=== PATIENT | male | born 1955 | race Caucasian/White ===

== ENCOUNTER 2018-05-01 20:09 | Observation (INO) ==
[2018-05-01] MEDS ORDERED: Sod Chloride 0.9% Inj 1,000 ML IV.SIG ONE (20:49)
--- NOTE | 2018-05-01 21:04 | ED ---
HPI General Chief Complaint: Syncope Stated Complaint: Evac/Syncope Time Seen by Provider: 05/01/18 20:19 Source: patient and RN notes reviewed Mode of arrival: EMS Limitations: no limitations History of Present Illness HPI narrative: 62-year-old male presents to the emergency department via EMS for evaluation after syncopal episode that occurred just prior to arrival. Patient states he was sitting on the balcony at his hotel. He is here on vacation from the [facility]. He states that he felt dizzy and then he had a syncopal episode. He is unsure how long he was out as his is the one that called 911. Patient states that he feels okay as long as he is lying still. He denies any headache. No chest pain or shortness of breath. No abdominal pain. Nausea, vomiting, diarrhea. According to EMS, he was hypotensive with blood pressure in the 80s over 40s. Patient reports history of hyperlipidemia, seizures, hypertension. He takes his antihypertensives as needed. He has not had any today. Patient denies any history of syncope in the past. He does take Dilantin for seizures. He does not believe he had any seizure activity. He denies being on anticoagulants. No recent surgery. No long travel. No leg edema. No hemoptysis. He is not on chemotherapy. No history DVT or PE. Moderate severity. Patient does state that his legs feel "heavy". MD complaint: collapsed Prodromal symptoms: lightheaded Witnessed: yes - by bystander Context: at rest Injuries sustained associated with event: none Current symptoms: back to baseline History: seizure disorder Treatments prior to arrival: IV fluids Related Data Home Medications Medication Instructions Recorded Confirmed clonidine HCl 0.1 mg PO PRN PRN 05/01/18 05/01/18 phenytoin sodium extended 60 mg PO DAILY 05/01/18 05/01/18 [Dilantin] ranitidine HCl [Zantac] 150 mg PO DAILY 05/01/18 05/01/18 sertraline [Zoloft] 50 mg PO DAILY 05/01/18 05/01/18 sertraline [Zoloft] 100 mg PO DAILY 05/01/18 05/01/18 Allergies Allergy/AdvReac Type Severity Reaction Status Date / Time No Known Allergies Allergy Unverified 05/01/18 20:24 Review of Systems ROS: all other systems reviewed are negative PMFSH Medical History Medical History Hypertension (Acute) Seizures (Acute) Social History Social History Substance History: No History of Abuse Smoking Status: Current every day smoker Tobacco Type: Cigarettes How Often Do You Have a Drink Containing Alcohol: 2 to 4 times a month Recent Travel in [facility] within the Last 8 Weeks: No Recent Out of Country Travel within the Last 8 Weeks: No Immunization History Tetanus Immunization: Unsure Hx Influenza Vaccine This Season: No Exam Narrative Exam Narrative: GENERAL: Well-nourished, well-developed male patient, afebrile SKIN: Focused skin assessment warm/dry. HEAD: Normocephalic. Atraumatic ENT: Mucosa pink and moist. No erythema or exudates. No uvular edema. No uvular , palatal, or tonsillar deviation. Airway patent. Nasal turbinates appear normal without nasal blood, purulent drainage or septal hematoma. Bilateral tympanic membranes clear without erythema or perforation. EYES: No scleral icterus. No injection or drainage. PERRLA. EOM intact. NECK: Supple, trachea midline. No JVD or lymphadenopathy. CARDIOVASCULAR: Regular rate and rhythm without murmurs, gallops, or rubs. Bilateral radial and pedal pulses are 2+ RESPIRATORY: Breath sounds equal bilaterally. No accessory muscle use. Lung sounds are clear to auscultation GASTROINTESTINAL: Abdomen soft, non-tender, nondistended. MUSCULOSKELETAL: No cyanosis, or edema. Bilateral upper and lower extremity strength 5/5. All extremities are neurovascularly intact BACK: Nontender without obvious deformity. No CVA tenderness. NEUROLOGICAL: Awake and alert. Cranial nerves II through XII intact. Motor and sensory grossly within normal limits. Five out of 5 muscle strength in all muscle groups. Normal speech. Finger to nose is normal bilaterally. Heel to campbell is normal bilaterally. Course Initial Documented Vital Signs Temperature 98 F 05/01/18 20:15 Pulse Rate 76 05/01/18 20:15 Respiratory Rate 18 05/01/18 20:15 Blood Pressure 114/62 05/01/18 20:15 Pulse Oximetry 94 L 05/01/18 20:15 Last Documented Vital Signs Temperature 98 F 05/01/18 20:15 Pulse Rate 99 H 05/01/18 21:13 Respiratory Rate 18 05/01/18 21:13 Blood Pressure 129/66 05/01/18 21:13 Pulse Oximetry 98 05/01/18 21:13 Medical Decision Making CASTILLO Attestation CASTILLO supervised visit: Yes Attestation: I was present with the advanced practitioner during the management of this patient. I discussed the case with the advanced practitioner and agree with the findings and plan as documented in their note except as noted below. 62yM presenting with syncopal episode just prior to arrival. Patient has a history of seizure disorder, on dilantin, but no observed seizure-like activity during this episode. Admits to drinking alcohol earlier this evening. BP initially 80s systolic on EMS arrival, improved to 110 with 1 L NS bolus. No known history of syncope in the past. Workup reveals subtherapeutic dilantin level, EtOH 67, trop negative, EKG unremarkable. The patient was given 1 g fosphenytoin loading dose. He will require further workup, cardiac monitoring, and re-evaluation at frequent intervals. [facility] Narrative Medical decision making narrative: 62-year-old male presents to the emergency department via EMS for evaluation after syncopal episode that occurred just prior to arrival. Apparently, patient was hypotensive on scene. EKG, CBC, CMP , magnesium, CK, troponin, TSH, PTT, PT/INR, dilantin level, alcohol level, CT the brain are ordered and pending. Patient is given normal saline 1 L IV bolus. Orthostatic vital signs are ordered and pending. EKG shows SR, no acute ST changes. CBC shows no acute abnormalities. CMP shows hypokalemia of 3.3. Magnesium is 1.9. CK is 55. Troponin is less than 0.02. TSH is 1.120. PTT is 20.9. PT/INR is 11.3/1.1. Alcohol level is 67. Dilantin level is 1.9. CT of the brain is negative. is now at bedside, describes an event that could possibly be a seizure. Patient is given fosphenytoin 1 g IV. Patient is admitted for observation, syncope vs. seizure. Medical Screen Exam Complete: Yes Emergency Medical Condition: Yes Differential Diagnosis Differential Diagnosis: dehydration vs. electrolyte abnormality vs. recurrent seizure vs. ACS vs. intracranial abnormality Medical Records Medical records reviewed: Yes I reviewed the patient's medical records. Lab Data Lab results reviewed: Yes I reviewed the patient's lab results. Result diagrams: 05/01/18 21:15 05/01/18 21:15 Lab Results 0905/01/18 05/01/18 Range/Units 21:15 21:15 21:15 WBC 8.0 (4.0-11.0) th/mm3 RBC 4.20 L (4.50-5.90) mil/mm3 Hgb 14.2 (13.0-17.0) gm/dL Hct 41.2 (39.0-51.0) % MCV 98.0 (80.0-100.0) fL MCH 33.8 (27.0-34.0) pg MCHC 34.5 (32.0-36.0) % RDW 13.3 (11.6-17.2) % Plt Count 259 (150-450) th/mm3 MPV 6.9 L (7.0-11.0) fL Neut % (Auto) 35.1 (16.0-70.0) % Lymph % (Auto) 56.9 H (9.0-44.0) % [place] % (Auto) 4.9 (0.0-8.0) % Eos % (Auto) 2.3 (0.0-4.0) % Baso % (Auto) 0.8 (0.0-2.0) % Neut # (Auto) 2.8 (1.8-7.7) th/mm3 Lymph # (Auto) 4.6 (1.0-4.8) th/mm3 [place] # (Auto) 0.4 (0.0-0.9) th/mm3 Eos # (Auto) 0.2 (0.0-0.4) th/mm3 Baso # (Auto) 0.1 (0.0-0.2) th/mm3 WBC Differential . Differential Comment Auto diff final PT 11.3 (9.8-11.6) sec INR 1.1 Ratio APTT 20.9 L (24.3-30.1) sec Sodium 144 (136-145) meq/L Potassium 3.3 L (3.5-5.1) meq/L Chloride 111 H (98-107) meq/L Carbon Dioxide 20.5 L (21.0-32.0) meq/L Anion Gap 13 (5-15) meq/L BUN 6 L (7-18) mg/dL Creatinine 0.71 (0.60-1.30) mg/dL Estimated GFR Greater than 89 (>89) mL/min Random Glucose 81 (74-106) mg/dL Calcium 8.4 L (8.5-10.1) mg/dL Magnesium 1.9 (1.5-2.5) mg/dL Total Bilirubin 0.2 (0.2-1.0) mg/dL AST 15 (15-37) U/L ALT 25 (12-78) U/L Alkaline Phosphatase 88 (45-117) U/L Total Creatine Kinase 55 (39-308) U/L Troponin I Less than 0.02 L (0.02-0.05) ng/mL Total Protein 6.0 L (6.4-8.2) g/dL Albumin 3.3 L (3.4-5.0) g/dL TSH 1.120 (0.358-3.740) uIU/mL Phenytoin 1.9 L (10.0-20.0) mcg/mL Serum Alcohol 67 H (0-5) mg/dL Imaging Data Radiologist's impression: Head CT 05/01/18 20:49 CONCLUSION: 1. Negative noncontrast head CT. . ECG Data Attestation: I personally reviewed and interpreted this ECG as follows: Interpretation: Rate: 70 BPM Rhythm: Sinus [place]: Normal Intervals: Normal intervals, no blocks, QTc 470 ms Q waves: III T waves: Inverted in aVL ST segments: No elevations or depressions Impression: Non-specific EKG, QTc 470 ms, no previous EKG available for comparison. Discharge Plan Discharge Disposition Patient Disposition: 30 Still Patient Discharge Condition Condition: Stable Discharge Details Diagnosis: Syncope, Subtherapeutic serum dilantin level Physicians Team ED Provider: Jayshree Randolph ED Midlevel Provider: Alexandria Almodovar Primary Care Provider: UNKNOWN, Attending Provider: Jamaica Bates Other Providers: [facility],Insurance ; Marisabel Murray Discharge Interventions Interventions: Vital Signs Last Done: 05/01/18 21:13 Status ED Status: Admitted Observation Patient
[2018-05-01 21:21] LABS: Baso # (Auto) 0.1 th/mm3 (0.0-0.2); Baso % (Auto) 0.8 % (0.0-2.0); Eos # (Auto) 0.2 th/mm3 (0.0-0.4); Eos % (Auto) 2.3 % (0.0-4.0); Hematocrit 41.2 % (39.0-51.0); Hemoglobin 14.2 gm/dL (13.0-17.0); Lymph # (Auto) 4.6 th/mm3 (1.0-4.8); Lymph % (Auto) 56.9 % (9.0-44.0); Mean Corpuscular HGB Conc 34.5 % (32.0-36.0); Mean Corpuscular Hemoglobin 33.8 pg (27.0-34.0); Mean Platelet Volume 6.9 fL (7.0-11.0); Mono # (Auto) 0.4 th/mm3 (0.0-0.9); Mono % (Auto) 4.9 % (0.0-8.0); Neut # (Auto) 2.8 th/mm3 (1.8-7.7); Neut % (Auto) 35.1 % (16.0-70.0); Platelet Count 259 th/mm3 (150-450); Red Cell Distribution Width 13.3 % (11.6-17.2)
[2018-05-01 21:38] LABS: Activated Partial Thrombo Time 20.9 sec (24.3-30.1); INR 1.1 Ratio; Prothrombin Time 11.3 sec (9.8-11.6)
[2018-05-01 21:41] LABS: Alanine Aminotransferase 25 U/L (12-78); Albumin 3.3 g/dL (3.4-5.0); Anion Gap 13 meq/L (5-15); Aspartate Aminotransferase 15 U/L (15-37); Blood Urea Nitrogen 6 mg/dL (7-18); Calcium 8.4 mg/dL (8.5-10.1); Carbon Dioxide 20.5 meq/L (21.0-32.0); Chloride 111 meq/L (98-107); Glomerular Filtration Rate Greater Than 89 mL/min (>89); Glucose,Random 81 mg/dL (74-106); Magnesium 1.9 mg/dL (1.5-2.5); Potassium 3.3 meq/L (3.5-5.1); Sodium 144 meq/L (136-145)
--- NOTE | 2018-05-01 21:46 | CT ---
EXAM DATE: 05/01/2018 9:43 PM EDT AGE/SEX: 62 years / Male INDICATIONS: Syncope. CLINICAL DATA: This is the patient's initial encounter. Patient reports that signs and symptoms have been present for 1 day and indicates a pain score of 0/10. MEDICAL/SURGICAL HISTORY: Hypertension. None. RADIATION DOSE: 56.35 CTDI (mGy) COMPARISON: No prior exams available for comparison. TECHNIQUE: CT of the head without contrast. Using automated exposure control and adjustment of the mA and/or kV according to patient size, radiation dose was kept as low as reasonably achievable to ob tain optimal diagnostic quality images. DICOM format image data is available electronically for revi ew and comparison. FINDINGS: Cerebrum: The ventricles are normal for age. No evidence of midline shift, mass lesion, hemorrhage or acute infarction. No extraaxial fluid collections are seen. Posterior Fossa: The cerebellum and brainstem are intact. The 4th ventricle is midline. The cerebe llopontine angle is unremarkable. Extracranial: The visualized portion of the orbits is intact. Skull: The calvaria is intact. No evidence of skull fracture. CONCLUSION: 1. Negative noncontrast head CT. . Electronically signed by: Ashok Allison MD 05/01/2018 9:45 PM EDT
[2018-05-01 21:50] LABS: Alkaline Phosphatase 88 U/L (45-117); Phenytoin (Dilantin) 1.9 mcg/mL (10.0-20.0)
[2018-05-01 21:51] LABS: Alcohol 67 mg/dL (0-5); Creatine Kinase 55 U/L (39-308)
[2018-05-01] MEDS ORDERED: Fosphenytoin Inj 1,000 MGPE in Sodium Chlor 0.9% Inj 50 ML IV.SIG ONE (21:58)
[2018-05-01] MEDS ORDERED: Acetaminophen 325 MG Tablet PO PRN (22:31)
[2018-05-01] MEDS ORDERED: Enoxaparin Inj 40 MG/0.4 ML Syringe SQ SCH (23:00)
--- NOTE | 2018-05-01 23:05 | P.HP ---
History of Present Illness Service: [facility] Primary Care Physician: UNKNOWN History of Present Illness: 62-year-old male with past medical history significant for seizure disorder, hypertension and hyperlipidemia presents the emergency department for evaluation of a syncopal episode. The patient reports he was sitting on the porch when he became dizzy. He does not remember the following events. His , who witnessed the event, states he lost consciousness for several seconds with his head drooping backward in his chair. She denies any seizure-like activity. Of note, the patient has been on Dilantin for the past 10 years although for the past 1 month he has been having emesis 20 minutes following the ingestion of Dilantin. He stopped taking his Dilantin approximately 2 days ago. He denies any chest pain or shortness of breath. No abdominal pain. No nausea/vomiting/diarrhea. No lateralizing signs/symptoms. No weakness. 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 - Medical History Medical History: Medical History (Last Updated 05/01/18 @ 23:00 by Jamaica Bates MD) Hyperlipidemia Hypertension Seizures - Surgical History Surgical History: Surgical History (Last Updated 05/01/18 @ 23:00 by Jamaica Bates MD) No history of previous surgery - Family History Family History: Family History (Last Updated 05/01/18 @ 23:00 by Jamaica Bates MD) Other Coronary artery disease Diabetes mellitus - Tobacco History Tobacco Use In Past 30 Days: Yes Smoking Status: Current every day smoker Tobacco Type: Cigarettes - Alcohol History How Often Do You Have a Drink Containing Alcohol: 2 to 4 times a month - Substance Use History Substance History: No History of Abuse - Travel History Recent Travel in the [place] Within the Last 8 Weeks: No Recent Travel Out of the Country Within the Last 8 Weeks: No - Immunization History Tetanus Immunization: Unsure Hx Influenza Vaccine This Season: No Medications and Allergies Active Medications: Active Medications Acetaminophen (Tylenol) 650 mg PO Q4H PRN PRN Reason: Temp > 100.4 Enoxaparin Sodium (Lovenox Inj) 40 mg SQ Q24H JAVIER Famotidine (Pepcid) 20 mg PO DAILY JAVIER Ondansetron HCl (Zofran Inj) 4 mg IV.PUSH Q6H PRN PRN Reason: NAUSEA OR VOMITING Phenytoin Sodium (Dilantin) 60 mg PO DAILY JAVIER Sertraline HCl (Zoloft) 100 mg PO DAILY JAVIER Allergies Allergy/AdvReac Type Severity Reaction Status Date / Time No Known Allergies Allergy Unverified 05/01/18 20:24 Home Medications Medication Instructions Recorded Confirmed Type clonidine HCl 0.1 mg PO PRN PRN 05/01/18 05/01/18 History phenytoin sodium extended 60 mg PO DAILY 05/01/18 05/01/18 History [Dilantin] ranitidine HCl [Zantac] 150 mg PO DAILY 05/01/18 05/01/18 History sertraline [Zoloft] 50 mg PO DAILY 05/01/18 05/01/18 History sertraline [Zoloft] 100 mg PO DAILY 05/01/18 05/01/18 History Exam Vital signs: Vital Signs 05/01/18 20:15 05/01/18 21:13 Temperature 98 F Pulse Rate 76 90 Respiratory Rate 18 18 Blood Pressure 114/62 129/66 Pulse Oximetry 94 L 98 Intake & Output 05/01/18 05/01/18 05/02/18 06:59 18:59 06:59 Intake Total 1000 / 1000 Output Total 700 / 700 Balance 300 / 300 Weight 74.843 kg Intake: IV 1000 / 1000 NS Inj 1,000 ML @ Wide Open IV. 1000 / 1000 SIG BOLUS ONE Rx#:[id number] Output: Urine 700 / 700 Narrative: Gen.: No acute distress Head: Normocephalic. Atraumatic. EENT: Pupils equal round and reactive to light. Nose without drainage. Airway intact. Throat without injection. Cardiovascular: Regular rate and rhythm. No murmurs, rubs or gallops. Respiratory: Lungs clear to auscultation bilaterally. No wheezes or rhonchi. Abdomen: Soft, nontender, nondistended. No peritoneal signs. Musculoskeletal: No gross deformities. No edema. Skin: No obvious rashes or erythema. Neuro: Sensory and motor grossly intact. Cranial nerves II through XII grossly intact. Results - Labs CBC & Chem 7: 05/01/18 21:15 05/01/18 21:15 Labs: Laboratory Results - last 24 hr 05/01/18 05/01/18 05/01/18 21:15 21:15 21:15 WBC 8.0 RBC 4.20 L Hgb 14.2 Hct 41.2 MCV 98.0 MCH 33.8 MCHC 34.5 RDW 13.3 Plt Count 259 MPV 6.9 L Neut % (Auto) 35.1 Lymph % (Auto) 56.9 H [place] % (Auto) 4.9 Eos % (Auto) 2.3 Baso % (Auto) 0.8 Neut # (Auto) 2.8 Lymph # (Auto) 4.6 [place] # (Auto) 0.4 Eos # (Auto) 0.2 Baso # (Auto) 0.1 WBC Differential . Differential Comment Auto diff final PT 11.3 INR 1.1 APTT 20.9 L Sodium 144 Potassium 3.3 L Chloride 111 H Carbon Dioxide 20.5 L Anion Gap 13 BUN 6 L Creatinine 0.71 Estimated GFR Greater than 89 Random Glucose 81 Calcium 8.4 L Magnesium 1.9 Total Bilirubin 0.2 AST 15 ALT 25 Alkaline Phosphatase 88 Total Creatine Kinase 55 Troponin I Less than 0.02 L Total Protein 6.0 L Albumin 3.3 L TSH 1.120 Phenytoin 1.9 L Serum Alcohol 67 H - Imaging Impressions Head CT 05/01/18 20:49 CONCLUSION: 1. Negative noncontrast head CT. . Caprini VTE Risk Assessment Caprini VTE Risk Assessment: Moderate/High Risk (score >= 2) Caprini Risk Assessment Model: Point Value = 1 Point Value = 2 Point Value = 3 Point Value = 5 Age 41-60 Minor surgery BMI > 25 kg/m2 Swollen legs Varicose veins or History of unexplained or recurrent spontaneous Oral contraceptives or hormone replacement Sepsis (< 1 month) Serious lung disease, including pneumonia (< 1 month) Abnormal pulmonary function Acute myocardial infarction Congestive heart failure (< 1 month) History of inflammatory bowel disease Medical patient at bed rest Age 61-74 Arthroscopic surgery Major open surgery (> 45 min) Laparoscopic surgery (> 45 min) Malignancy Confined to bed (> 72 hours) Immobilizing plaster cast Central venous access Age >= 75 History of VTE Family history of VTE Factor V Leiden Prothrombin [id number] Lupus anticoagulant Anticardiolipin antibodies Elevated serum homocysteine Heparin-induced thrombocytopenia Other congenital or acquired thrombophilia Stroke (< 1 month) Elective arthroplasty Hip, pelvis, or leg fracture Acute spinal cord injury (< 1 month) Prophylaxis Regimen: Total Risk Factor Score Risk Level Prophylaxis Regimen 0-1 Low Early ambulation 2 Moderate Order ONE of the following: *Sequential Compression Device (SCD) *Heparin 5000 units SQ BID 3-4 Higher Order ONE of the following medications: *Heparin 5000 units SQ TID *Enoxaparin/Lovenox 40 mg SQ daily (WT < 150 kg, CrCl > 30 mL/min) *Enoxaparin/Lovenox 30 mg SQ daily (WT < 150 kg, CrCl > 10-29 mL/min) *Enoxaparin/Lovenox 30 mg SQ BID (WT < 150 kg, CrCl > 30 mL/min) AND/OR *Sequential Compression Device (SCD) 5 or more Highest Order ONE of the following medications: *Heparin 5000 units SQ TID (Preferred with Epidurals) *Enoxaparin/Lovenox 40 mg SQ daily (WT < 150 kg, CrCl > 30 mL/min) *Enoxaparin/Lovenox 30 mg SQ daily (WT < 150 kg, CrCl > 10-29 mL/min) *Enoxaparin/Lovenox 30 mg SQ BID (WT < 150 kg, CrCl > 30 mL/min) AND *Sequential Compression Device (SCD) Assessment and Plan - Plan Assessment/plan: 1. Syncope Unclear etiology Concern for cardiac versus seizure EEG pending Patient subtherapeutic on his Dilantin Status post fosphenytoin, continue daily Neurology consulted, appreciate recommendations Echo/carotid ultrasound pending 2. Seizure disorder As above 3. Hypertension Clonidine as needed FEN Cardiac diet Electrolytes: Status post repletion of potassium, monitor BMP Lovenox
[2018-05-02 07:30] LABS: Baso % (Auto) 0.5 % (0.0-2.0); Eos # (Auto) 0.1 th/mm3 (0.0-0.4); Eos % (Auto) 1.3 % (0.0-4.0); Hematocrit 45.3 % (39.0-51.0); Hemoglobin 15.2 gm/dL (13.0-17.0); Lymph # (Auto) 3.6 th/mm3 (1.0-4.8); Lymph % (Auto) 42.8 % (9.0-44.0); Mean Corpuscular HGB Conc 33.6 % (32.0-36.0); Mean Corpuscular Hemoglobin 33.6 pg (27.0-34.0); Mean Platelet Volume 7.2 fL (7.0-11.0); Mono # (Auto) 0.5 th/mm3 (0.0-0.9); Mono % (Auto) 5.8 % (0.0-8.0); Neut # (Auto) 4.1 th/mm3 (1.8-7.7); Neut % (Auto) 49.6 % (16.0-70.0); Platelet Count 253 th/mm3 (150-450); Red Blood Count 4.53 mil/mm3 (4.50-5.90); Red Cell Distribution Width 13.7 % (11.6-17.2); White Blood Count 8.3 th/mm3 (4.0-11.0)
[2018-05-02 07:52] LABS: Anion Gap 8 meq/L (5-15); Blood Urea Nitrogen 10 mg/dL (7-18); Calcium 8.8 mg/dL (8.5-10.1); Carbon Dioxide 23.8 meq/L (21.0-32.0); Chloride 112 meq/L (98-107); Glomerular Filtration Rate Greater Than 89 mL/min (>89); Glucose,Random 89 mg/dL (74-106); Sodium 144 meq/L (136-145)
[2018-05-02] MEDS ORDERED: Sertraline 100 MG Tablet PO SCH (09:00)
[2018-05-02] MEDS ORDERED: Famotidine 20 MG Tablet PO SCH (09:00)
--- NOTE | 2018-05-02 09:02 | P.CONNEU ---
History of Present Illness Service: Neurology Consult date: 05/02/18 Requesting Physician: Jamaica Bates Reason for Consult: Syncope vs Seizure Primary Care Provider: UNKNOWN Chief Complaint: Syncope vs seizure History of Present Illness: 62 y/o male with hx of seizures presented to the ER after episode of suspect sz vs syncope. Pt reports hx of seizures starting about 10 yrs ago with generalized seizure. He has been followed by a neurologist in his home town. Initially started on generic dilantin but had difficulty stabilizing his level and he was changed to brand name Dilantin. He had been on 400mg qam and 200mg qhs. Pt states a few months ago he began experiencing nausea and vomitting about 20 min after he took his medications. He tried weaning off his other medications but found it was related to his Dilantin. He began experimenting with how he took his dose to see if this would decrease nausea and it did not. He began cutting back his dose to 200mg daily and had not had any medication in the past 2 days while on vacation as he did not want to be vomitting while they were here. Yesterday he was sitting in his chair and had an aura similar to what he would have prior to a seizure, he felt dizzy, no vertigo or light headedness, states that it seems like everything he is seeing is slanted. He then lost consciousness. His states he was rigid, no convulsions, head was back and he made a choking sound. Episode lasted about 30 seconds. He then slowly came to. He was nauseous, vomitted and was confused. He had a severe headache as well. He did not bite his tongue. He did have urinary incontinence. His called 911 and he was brought to the ER. His last seizure was almost 10 yrs ago. He has never been on any other medications other than the Dilantin and generic dilantin. He denies hx of stroke or TIA. He has hx of HTN and hyperlipidemia. No hx of meningitis or encephalitis. No hx of cancer or any head trauma. They do not know the cause of his seizures. Review of Systems All other systems reviewed negative except as stated in HPI Constitutional: Reports weight loss Gastrointestinal: Reports nausea, Reports vomiting Neurologic: Reports dizziness, Reports headache(s), Reports seizure-like activity PMFSH - History History Provided By: Patient - Medical / Surgical Hx Neg / Unobtainable Surgical History: No Previous Surgery - Medical History Medical History: Medical History (Last Updated 05/01/18 @ 23:00 by Jamaica Bates MD) Hyperlipidemia Hypertension Seizures - Surgical History Surgical History: Surgical History (Last Updated 05/01/18 @ 23:00 by Jamaica Bates MD) No history of previous surgery - Family History Family History: Family History (Last Updated 05/01/18 @ 23:00 by Jamaica Bates MD) Other Coronary artery disease Diabetes mellitus - Social History I have reviewed the patient's Social History: Yes - Tobacco History Second Hand Smoke Exposure: No Tobacco Use In Past 30 Days: Yes Smoking Status: Heavy tobacco smoker Tobacco Type: Cigarettes - Alcohol History How Often Do You Have a Drink Containing Alcohol: 4 or more times a week - Substance Use History Substance History: No History of Abuse - Travel History [facility] Travel in the [facility] Within the Last 8 Weeks: No Recent Travel Out of the Country Within the Last 8 Weeks: No - Immunization History Tetanus Immunization: Unsure Hx Influenza Vaccine This Season: No Medications and Allergies Allergies Allergy/AdvReac Type Severity Reaction Status Date / Time No Known Allergies Allergy Unverified 05/01/18 20:24 Home Medications Medication Instructions Recorded Confirmed Type clonidine HCl 0.1 mg PO PRN PRN 05/01/18 05/01/18 History phenytoin sodium extended 60 mg PO DAILY 05/01/18 05/01/18 History [Dilantin] ranitidine HCl [Zantac] 150 mg PO DAILY 05/01/18 05/01/18 History sertraline [Zoloft] 50 mg PO DAILY 05/01/18 05/01/18 History sertraline [Zoloft] 100 mg PO DAILY 05/01/18 05/01/18 History Active Medications: Active Medications Acetaminophen (Tylenol) 650 mg PO Q4H PRN PRN Reason: Temp > 100.4 Clonidine HCl (Catapres) 0.1 mg PO Q6H PRN PRN Reason: SBP>160, DBP>90 Last Admin: 05/02/18 07:31 Dose: 0.1 mg Enoxaparin Sodium (Lovenox Inj) 40 mg SQ Q24H JAVIER Last Admin: 05/01/18 23:14 Dose: 40 mg Famotidine (Pepcid) 20 mg PO DAILY JAVIER Levetiracetam (Keppra) 500 mg PO BID [facility] Ondansetron HCl (Zofran Inj) 4 mg IV.PUSH Q6H PRN PRN Reason: NAUSEA OR VOMITING Sertraline HCl (Zoloft) 100 mg PO DAILY [facility] Exam Vital signs: Vital Signs 05/01/18 20:15 05/01/18 21:09 05/01/18 21:13 Temperature 98 F Pulse Rate 76 72 90 Respiratory Rate 18 18 Blood Pressure 114/62 129/66 129/66 Pulse Oximetry 94 L 94 L 98 05/02/18 00:00 05/02/18 04:00 05/02/18 07:22 Temperature 98.8 F 98.5 F 98.1 F Pulse Rate 72 69 65 Respiratory Rate 16 17 16 Blood Pressure 167/95 H 167/99 H 178/105 H Pulse Oximetry 94 L 94 L 96 Intake & Output 05/01/18 05/02/18 05/02/18 18:59 06:59 18:59 Intake Total 1070 / 1070 100 / 100 Output Total 700 / 700 Balance 370 / 370 100 / 100 Weight 74.843 kg Intake: IV 1070 / 1070 Cerebyx Inj 1,000 MGPE In NS 70 / 70 Inj 50 ML @ 280 mls/hr IV.SIG ONCE ONE Rx#:[id number] NS Inj 1,000 ML @ Wide Open IV. 1000 / 1000 SIG BOLUS ONE Rx#:[id number] Oral 100 / 100 Output: Urine 700 / 700 Other: Weight On Admission 74.843 kg - Routine HEENT Exam Head: Present: normocephalic, atraumatic - Routine Neck Exam Absent: carotid bruit - Routine Cardiovascular Exam Present: RRR - Routine Neurological Exam Present: alert, oriented X3, CN II-XII intact, normal reflexes, moving all extremities, normal tone, hearing grossly intact, normal speech. Absent: sensory deficit, motor deficit, pronator drift, clonus, nystagmus, facial asymmetry, tremors Results - Labs CBC & Chem 7: 05/02/18 06:00 05/02/18 06:00 Labs: Laboratory Results - last 24 hr 05/01/18 05/01/18 05/01/18 21:15 21:15 21:15 WBC 8.0 RBC 4.20 L Hgb 14.2 Hct 41.2 MCV 98.0 MCH 33.8 MCHC 34.5 RDW 13.3 Plt Count 259 MPV 6.9 L Neut % (Auto) 35.1 Lymph % (Auto) 56.9 H Prentiss % (Auto) 4.9 Eos % (Auto) 2.3 Baso % (Auto) 0.8 Neut # (Auto) 2.8 Lymph # (Auto) 4.6 Prentiss # (Auto) 0.4 Eos # (Auto) 0.2 Baso # (Auto) 0.1 WBC Differential . Differential Comment Auto diff final PT 11.3 INR 1.1 APTT 20.9 L Sodium 144 Potassium 3.3 L Chloride 111 H Carbon Dioxide 20.5 L Anion Gap 13 BUN 6 L Creatinine 0.71 Estimated GFR Greater than 89 Random Glucose 81 Calcium 8.4 L Magnesium 1.9 Total Bilirubin 0.2 AST 15 ALT 25 Alkaline Phosphatase 88 Total Creatine Kinase 55 Troponin I Less than 0.02 L Total Protein 6.0 L Albumin 3.3 L TSH 1.120 Phenytoin 1.9 L Serum Alcohol 67 H 05/02/18 05/02/18 06:00 06:00 WBC 8.3 RBC 4.53 Hgb 15.2 Hct 45.3 MCV 100.0 MCH 33.6 MCHC 33.6 RDW 13.7 Plt Count 253 MPV 7.2 Neut % (Auto) 49.6 Lymph % (Auto) 42.8 Prentiss % (Auto) 5.8 Eos % (Auto) 1.3 Baso % (Auto) 0.5 Neut # (Auto) 4.1 Lymph # (Auto) 3.6 Prentiss # (Auto) 0.5 Eos # (Auto) 0.1 Baso # (Auto) 0.0 WBC Differential . Differential Comment Auto diff final PT INR APTT Sodium 144 Potassium 4.0 Chloride 112 H Carbon Dioxide 23.8 Anion Gap 8 BUN 10 Creatinine 0.70 Estimated GFR Greater than 89 Random Glucose 89 Calcium 8.8 Magnesium Total Bilirubin AST ALT Alkaline Phosphatase Total Creatine Kinase Troponin I Total Protein Albumin TSH Phenytoin Serum Alcohol - Imaging Impressions Head CT 05/01/18 20:49 CONCLUSION: 1. Negative noncontrast head CT. . Review/Management - Diagnosis (1) Seizure Code(s): R56.9 - Unspecified convulsions Status: Acute Current Visit: Yes - Review/Management Plan: Episode sounds suggestive of seizure he had weaned himself off Dilantin due to side effects of nausea, vomiting will start Keppra 500mg bid in place of the Dilantin side effects/benefit discussed with pt no driving x 6 months, no unguarded heights or swimming alone discussed drinking alcohol will lower seizure threshold will get EEG MRI brain MRA brain CUS pending continue telemetry ECHO pending pt has neurologist that he follows with in his home town Addendum note pt seen examined and d/w PA agree for change to keppra 500 mg bid,eeg if w/u negative can go home today and f/u in [facility] with his neurologist. No driving for 6 mo's pt informed.
[2018-05-02] MEDS ORDERED: levETIRAcetam 500 MG Tablet PO SCH (10:00)
--- NOTE | 2018-05-02 12:02 | US ---
EXAM DATE: 05/02/2018 11:41 AM EDT AGE/SEX: 62 years / Male INDICATIONS: Syncope. CLINICAL DATA: This is the patient's initial encounter. Patient reports that signs and symptoms have been present for 1 day and indicates a pain score of 0/10. MEDICAL/SURGICAL HISTORY: . Hyperlipidemia. HTN. Seizures. None. COMPARISON: No prior exams available for comparison. VELOCITY PARAMETERS: ICA/CCA Ratio: Right 0.98 , Left 0.71 ICA: Right 85 cm/sec, Left 67 cm/sec CCA: Right 86 cm/sec, Left 94 cm/sec ECA: Right 96 cm/sec, Left 81 cm/sec Vertebral: Right 45 cm/sec antegrade, Left 76 cm/sec antegrade FINDINGS: Right Carotid: Mild arteriosclerotic plaque is visualized.The waveforms are within normal limits. Left Carotid: Mild arteriosclerotic plaque is visualized. The waveforms are within normal limits. Other: None. CONCLUSION: 1. Right Internal Carotid Artery: No significant stenosis or atherosclerotic plaque is visualized. 2. Left Internal Carotid Artery: No significant stenosis or atherosclerotic plaque is visualized. Electronically signed by: Lauro Martinez MD 05/02/2018 12:00 PM EDT
[2018-05-02 12:21] VITALS: BP 172/89; PULSE 63; RESP 18; TEMP 97.7; O2SAT 94
--- NOTE | 2018-05-02 13:54 | ECHRPT ---
Indication: Atrial Fib and Flutter CONCLUSIONS Normal left ventricular size. Wall thickness is normal. The left ventricular systolic function is normal with an estimated ejection fraction in the range of 55-60%. Trace mitral valve regurgitation. There is trace tricuspid valve regurgitation. The estimated pulmonary arterial pressure is 33 mmHg. BP: / HR: Rhythm: MEASUREMENTS (Male / Female) Normal Values Technical Quality:Fair 2D ECHO LV Diastolic Diameter PLAX 4.6 cm 4.2 - 5.9 / 3.9 - 5.3 cm LV Systolic Diameter PLAX 3.1 cm IVS Diastolic Thickness 1.0 cm 0.6 - 1.0 / 0.6 - 0.9 cm LVPW Diastolic Thickness 0.9 cm 0.6 - 1.0 / 0.6 - 0.9 cm LV Relative Wall Thickness 0.4 RV Internal Dim ED PLAX 2.8 cm LVOT Diameter 2.2 cm Aortic Root Diameter 3.3 cm LA Systolic Diameter LX 3.3 cm 3.0 - 4.0 / 2.7 - 3.8 cm M-MODE AV Cusp Separation MM 1.8 cm DOPPLER AV Peak Velocity 114.0 cm/s AV Peak Gradient 5.2 mmHg LVOT Peak Velocity 83.4 cm/s LVOT Peak Gradient 2.8 mmHg AV Area Cont Eq pk 2.8 cm Mitral E Point Velocity 68.1 cm/s Mitral A Point Velocity 75.5 cm/s Mitral E to A Ratio 0.9 LV E' Lateral Velocity 11.1 cm/s Mitral E to LV E' Lateral Ratio 6.1 LV E' Septal Velocity 8.0 cm/s Mitral E to LV E' Septal Ratio 8.5 TR Peak Velocity 239.0 cm/s TR Peak Gradient 22.8 mmHg Right Atrial Pressure 10.0 mmHg Pulmonary Artery Systolic Pressu 32.8 mmHg Right Ventricular Systolic Press 32.8 mmHg PV Peak Velocity 115.0 cm/s PV Peak Gradient 5.3 mmHg FINDINGS LEFT VENTRICLE Normal left ventricular size. Wall thickness is normal. The left ventricular systolic function is normal with an estimated ejection fraction in the range of 55-60%. No regional wall motion abnormalities are present. RIGHT VENTRICLE Normal right ventricular size and systolic function. LEFT ATRIUM The left atrial size is normal. RIGHT ATRIUM The right atrial size is normal. ATRIAL SEPTUM Normal atrial septal thickness without atrial level shunting by limited color doppler interrogation. AORTA The aortic root and proximal ascending aorta are normal in size on limited imaging. MITRAL VALVE Structurally normal mitral valve. No mitral valve stenosis. Trace mitral valve regurgitation. AORTIC VALVE Trileaflet aortic valve. No aortic valve stenosis or regurgitation. TRICUSPID VALVE There is trace tricuspid valve regurgitation. The estimated pulmonary arterial pressure is 33 mmHg. PULMONARY VALVE No pulmonary valve regurgitation or stenosis. VESSELS The inferior vena cava is normal in size. PERICARDIUM No pericardial effusion. Fermin Hughes (Electronically Signed) Final Date:02 May 2018 13:53
--- NOTE | 2018-05-02 14:16 | MR ---
EXAM DATE: 05/02/2018 1:41 PM EDT AGE/SEX: 62 years / Male INDICATIONS: Seizures. CLINICAL DATA: This is the patient's initial encounter. Patient reports that signs and symptoms have been present for 1 day and indicates a pain score of 0/10. MEDICAL/SURGICAL HISTORY: Seizures. None. COMPARISON: C, MRA HEAD W/O CONTRAST, 05/02/2018. . TECHNIQUE: Multiplanar, multisequence examination of the brain was performed without contrast. FINDINGS: There is mild prominence of the CSF spaces greatest at the vertex. There is no evidence for acute inf arction on diffusion-weighted images. Empty sella is noted. There are no signs of mass effect or hemo rrhage. CONCLUSION: 1. Mild volume loss. 2. No acute findings. Electronically signed by: Lauro Martinez MD 05/02/2018 2:15 PM EDT
--- NOTE | 2018-05-02 14:17 | MR ---
EXAM DATE: 05/02/2018 1:44 PM EDT AGE/SEX: 62 years / Male INDICATIONS: Seizures. CLINICAL DATA: This is the patient's initial encounter. Patient reports that signs and symptoms have been present for 1 day and indicates a pain score of 0/10. MEDICAL/SURGICAL HISTORY: Seizures. None. COMPARISON: [facility] [place], MR HEAD W/O CONTRAST, 05/02/2018. . TECHNIQUE: 3D [id number] MRA was performed. Source images, multiplanar STS MIP, and 3D volum e MIP reconstructions were reviewed. FINDINGS: There is excellent visualization of the major intracranial arteries out to the second-order branch ve ssels. There is no evidence for aneurysm, vessel truncation or stenosis, and no evidence for vascula r malformation. CONCLUSION: 1. Negative MRA Cow ([place]) non contrast. Electronically signed by: Lauro Martinez MD 05/02/2018 2:15 PM EDT
--- NOTE | 2018-05-02 14:50 | P.PN ---
Subjective Interval history: Patient is seen lying in bed. is at bedside. Patient denies any syncope, dizziness or headache. No weakness or loss of motor control. No further seizure-like episodes reported. No nausea vomiting or diarrhea. He would like to go home. Has tolerated the Keppra so far without vomiting. Physical Exam Vital signs: Vital Signs 05/01/18 20:15 05/01/18 21:09 05/01/18 21:13 Temperature 98 F Pulse Rate 76 72 90 Respiratory Rate 18 18 Blood Pressure 114/62 129/66 129/66 Pulse Oximetry 94 L 94 L 98 05/02/18 00:00 05/02/18 04:00 05/02/18 07:22 Temperature 98.8 F 98.5 F 98.1 F Pulse Rate 72 69 65 Respiratory Rate 16 17 16 Blood Pressure 167/95 H 167/99 H 178/105 H Pulse Oximetry 94 L 94 L 96 05/02/18 08:00 05/02/18 09:00 05/02/18 10:28 Temperature Pulse Rate 66 66 Respiratory Rate Blood Pressure 188/85 H Pulse Oximetry 05/02/18 12:17 Temperature 97.7 F Pulse Rate 63 Respiratory Rate 18 Blood Pressure 172/89 H Pulse Oximetry 94 L Intake & Output 05/01/18 05/02/18 05/02/18 18:59 06:59 18:59 Intake Total 1070 / 1070 100 / 100 Output Total 700 / 700 Balance 370 / 370 100 / 100 Weight 74.843 kg Intake: IV 1070 / 1070 Cerebyx Inj 1,000 MGPE In NS 70 / 70 Inj 50 ML @ 280 mls/hr IV.SIG ONCE ONE Rx#:[id number] NS Inj 1,000 ML @ Wide Open IV. 1000 / 1000 SIG BOLUS ONE Rx#:[id number] Oral 100 / 100 Output: Urine 700 / 700 Other: Weight On Admission 74.843 kg Narrative: GENERAL: Well-nourished, well-developed adult male in no obvious distress. SKIN: Warm and dry. HEAD: Atraumatic. Normocephalic. CARDIOVASCULAR: Regular rate and rhythm. RESPIRATORY: No accessory muscle use. Clear to auscultation. Breath sounds equal bilaterally. GASTROINTESTINAL: Abdomen soft, non-tender, non-distended. Positive bowel sounds. MUSCULOSKELETAL: Extremities without clubbing, cyanosis, or edema. No obvious deformities. NEUROLOGICAL: Awake and alert. No obvious cranial nerve deficits. Motor grossly within normal limits. Normal speech. PSYCHIATRIC: Appropriate mood and affect; insight and judgment good. Results - Labs CBC & Chem 7: 05/02/18 06:00 05/02/18 06:00 Laboratory Results - last 24 hr 05/01/18 05/01/18 05/01/18 21:15 21:15 21:15 WBC 8.0 RBC 4.20 L Hgb 14.2 Hct 41.2 MCV 98.0 MCH 33.8 MCHC 34.5 RDW 13.3 Plt Count 259 MPV 6.9 L Neut % (Auto) 35.1 Lymph % (Auto) 56.9 H Hendricks % (Auto) 4.9 Eos % (Auto) 2.3 Baso % (Auto) 0.8 Neut # (Auto) 2.8 Lymph # (Auto) 4.6 Hendricks # (Auto) 0.4 Eos # (Auto) 0.2 Baso # (Auto) 0.1 WBC Differential . Differential Comment Auto diff final PT 11.3 INR 1.1 APTT 20.9 L Sodium 144 Potassium 3.3 L Chloride 111 H Carbon Dioxide 20.5 L Anion Gap 13 BUN 6 L Creatinine 0.71 Estimated GFR Greater than 89 Random Glucose 81 Calcium 8.4 L Magnesium 1.9 Total Bilirubin 0.2 AST 15 ALT 25 Alkaline Phosphatase 88 Total Creatine Kinase 55 Troponin I Less than 0.02 L Total Protein 6.0 L Albumin 3.3 L TSH 1.120 Phenytoin 1.9 L Serum Alcohol 67 H 05/02/18 05/02/18 06:00 06:00 WBC 8.3 RBC 4.53 Hgb 15.2 Hct 45.3 MCV 100.0 MCH 33.6 MCHC 33.6 RDW 13.7 Plt Count 253 MPV 7.2 Neut % (Auto) 49.6 Lymph % (Auto) 42.8 Hendricks % (Auto) 5.8 Eos % (Auto) 1.3 Baso % (Auto) 0.5 Neut # (Auto) 4.1 Lymph # (Auto) 3.6 Hendricks # (Auto) 0.5 Eos # (Auto) 0.1 Baso # (Auto) 0.0 WBC Differential . Differential Comment Auto diff final PT INR APTT Sodium 144 Potassium 4.0 Chloride 112 H Carbon Dioxide 23.8 Anion Gap 8 BUN 10 Creatinine 0.70 Estimated GFR Greater than 89 Random Glucose 89 Calcium 8.8 Magnesium Total Bilirubin AST ALT Alkaline Phosphatase Total Creatine Kinase Troponin I Total Protein Albumin TSH Phenytoin Serum Alcohol - Imaging Impressions Head CT 05/01/18 20:49 CONCLUSION: 1. Negative noncontrast head CT. . Carotid Doppler Study 05/02/18 00:00 CONCLUSION: 1. Right Internal Carotid Artery: No significant stenosis or atherosclerotic plaque is visualized. 2. Left Internal Carotid Artery: No significant stenosis or atherosclerotic plaque is visualized. Head MRI 05/02/18 00:00 CONCLUSION: 1. Mild volume loss. 2. No acute findings. Head MRA 05/02/18 00:00 CONCLUSION: 1. Negative MRA Cow ([place]) non contrast. Assessment and Plan - Plan 62-year-old male with past medical history significant for seizure disorder, hypertension and hyperlipidemia presents the emergency department for evaluation of a syncopal episode. Patient reports that he has been unable to tolerate his long-standing Dilantin recently due to nausea and vomiting after taking. Assessment/plan: Seizure Concern for cardiac versus seizure. Cardiac workup was negative. Patient subtherapeutic on his Dilantin due to vomiting; neuro changed to keppra Patient has been cleared for discharge by neurology if all testing is negative. Hypertension Continue home medications and add clonidine. Patient's blood pressure known to be labile and exacerbated by white coat.
--- NOTE | 2018-05-02 14:58 | P.DS ---
Date of admission: 05/01/18 22:21 Primary care physician: UNKNOWN Attending physician on discharge: Angel Astorga Anticipated date of discharge: 05/02/18 Brief History from admission: 62-year-old male with past medical history significant for seizure disorder, hypertension and hyperlipidemia presents the emergency department for evaluation of a syncopal episode. The patient reports he was sitting on the porch when he became dizzy. He does not remember the following events. His , who witnessed the event, states he lost consciousness for several seconds with his head drooping backward in his chair. She denies any seizure-like activity. Of note, the patient has been on Dilantin for the past 10 years although for the past 1 month he has been having emesis 20 minutes following the ingestion of Dilantin. He stopped taking his Dilantin approximately 2 days ago. He denies any chest pain or shortness of breath. No abdominal pain. No nausea/vomiting/diarrhea. No lateralizing signs/symptoms. No weakness. No fever/chills DS: Diagnosis - Discharge Diagnosis (1) Seizure Status: Acute DS: Medications - Discharge Medications Prescriptions: levetiracetam [Keppra] 500 mg PO BID #60 tab DS: Summary Hospital Course: 62-year-old male with past medical history significant for seizure disorder, hypertension and hyperlipidemia presents the emergency department for evaluation of a syncopal episode. Patient reports that he has been unable to tolerate his long-standing Dilantin recently due to nausea and vomiting after taking. Evaluated for cardiac cause versus seizure. Cardiac workup was negative. Patient subtherapeutic on his Dilantin due to vomiting; neuro changed to keppra. - Time Spent with Patient Total time spent providing and/or coordinating discharge services: Less than 30 minutes - Quality: VTE Deep Vein Thrombosis/Pulmonary Embolism Present on Admission: No Exam Vital signs: Vital Signs 05/01/18 20:15 05/01/18 21:09 05/01/18 21:13 Temperature 98 F Pulse Rate 76 72 90 Respiratory Rate 18 18 Blood Pressure 114/62 129/66 129/66 Pulse Oximetry 94 L 94 L 98 05/02/18 00:00 05/02/18 04:00 05/02/18 07:22 Temperature 98.8 F 98.5 F 98.1 F Pulse Rate 72 69 65 Respiratory Rate 16 17 16 Blood Pressure 167/95 H 167/99 H 178/105 H Pulse Oximetry 94 L 94 L 96 05/02/18 08:00 05/02/18 09:00 05/02/18 10:28 Temperature Pulse Rate 66 66 Respiratory Rate Blood Pressure 188/85 H Pulse Oximetry 05/02/18 12:17 Temperature 97.7 F Pulse Rate 63 Respiratory Rate 18 Blood Pressure 172/89 H Pulse Oximetry 94 L Intake & Output 05/01/18 05/02/18 05/02/18 18:59 06:59 18:59 Intake Total 1070 / 1070 100 / 100 Output Total 700 / 700 Balance 370 / 370 100 / 100 Weight 74.843 kg Intake: IV 1070 / 1070 Cerebyx Inj 1,000 MGPE In NS 70 / 70 Inj 50 ML @ 280 mls/hr IV.SIG ONCE ONE Rx#:[id number] NS Inj 1,000 ML @ Wide Open IV. 1000 / 1000 SIG BOLUS ONE Rx#:[id number] Oral 100 / 100 Output: Urine 700 / 700 Other: Weight On Admission 74.843 kg Narrative: GENERAL: Well-nourished, well-developed adult male in no obvious distress. SKIN: Warm and dry. HEAD: Atraumatic. Normocephalic. CARDIOVASCULAR: Regular rate and rhythm. RESPIRATORY: No accessory muscle use. Clear to auscultation. Breath sounds equal bilaterally. GASTROINTESTINAL: Abdomen soft, non-tender, non-distended. Positive bowel sounds. MUSCULOSKELETAL: Extremities without clubbing, cyanosis, or edema. No obvious deformities. NEUROLOGICAL: Awake and alert. No obvious cranial nerve deficits. Motor grossly within normal limits. Normal speech. PSYCHIATRIC: Appropriate mood and affect; insight and judgment good. Results Procedures completed during hospitalization: none Labs on day of discharge: Labs from last 24 hours 05/02/18 05/02/18 05/01/18 06:00 06:00 21:15 WBC 8.3 RBC 4.53 Hgb 15.2 Hct 45.3 MCV 100.0 MCH 33.6 MCHC 33.6 RDW 13.7 Plt Count 253 MPV 7.2 Neut % (Auto) 49.6 Lymph % (Auto) 42.8 [place] % (Auto) 5.8 Eos % (Auto) 1.3 Baso % (Auto) 0.5 Neut # (Auto) 4.1 Lymph # (Auto) 3.6 [place] # (Auto) 0.5 Eos # (Auto) 0.1 Baso # (Auto) 0.0 WBC Differential . Differential Comment Auto diff final PT INR APTT Sodium 144 144 Potassium 4.0 3.3 L Chloride 112 H 111 H Carbon Dioxide 23.8 20.5 L Anion Gap 8 13 BUN 10 6 L Creatinine 0.70 0.71 Estimated GFR Greater than 89 Greater than 89 Random Glucose 89 81 Calcium 8.8 8.4 L Magnesium 1.9 Total Bilirubin 0.2 AST 15 ALT 25 Alkaline Phosphatase 88 Total Creatine Kinase 55 Troponin I Less than 0.02 L Total Protein 6.0 L Albumin 3.3 L TSH 1.120 Phenytoin 1.9 L Serum Alcohol 67 H 05/01/18 05/01/18 21:15 21:15 WBC 8.0 RBC 4.20 L Hgb 14.2 Hct 41.2 MCV 98.0 MCH 33.8 MCHC 34.5 RDW 13.3 Plt Count 259 MPV 6.9 L Neut % (Auto) 35.1 Lymph % (Auto) 56.9 H [place] % (Auto) 4.9 Eos % (Auto) 2.3 Baso % (Auto) 0.8 Neut # (Auto) 2.8 Lymph # (Auto) 4.6 [place] # (Auto) 0.4 Eos # (Auto) 0.2 Baso # (Auto) 0.1 WBC Differential . Differential Comment Auto diff final PT 11.3 INR 1.1 APTT 20.9 L Sodium Potassium Chloride Carbon Dioxide Anion Gap BUN Creatinine Estimated GFR Random Glucose Calcium Magnesium Total Bilirubin AST ALT Alkaline Phosphatase Total Creatine Kinase Troponin I Total Protein Albumin TSH Phenytoin Serum Alcohol - Impressions ITS Impressions Head CT 05/01/18 20:49 CONCLUSION: 1. Negative noncontrast head CT. . Carotid Doppler Study 05/02/18 00:00 CONCLUSION: 1. Right Internal Carotid Artery: No significant stenosis or atherosclerotic plaque is visualized. 2. Left Internal Carotid Artery: No significant stenosis or atherosclerotic plaque is visualized. Head MRI 05/02/18 00:00 CONCLUSION: 1. Mild volume loss. 2. No acute findings. Head MRA 05/02/18 00:00 CONCLUSION: 1. Negative MRA [place] ([place]) non contrast. Discharge Plan - Discharge Disposition Patient Disposition: Discharge Home - Discharge Condition Condition: Stable - Discharge Order Discharge Orders: Discharge Order (Routine); Ordered 05/02/18 Ordered By: Azeb Koo - Discharge Details Discharge Comment: Cleared for discharge after all testing is completed and results are normal. - Physicians Team Primary Care Provider: UNKNOWN, Attending Provider: Angel Astorga Other Providers: Marisabel Murray MD ; [facility]
--- NOTE | 2018-05-02 18:53 | ECG ---
Date Performed: 05/01/2018 Time Performed: 20:25:04 PTAGE: 62 years EKG: Sinus rhythm PROLONGED QT INTERVAL ABNORMAL ECG NO PREVIOUS TRACING DOCTOR: Levar Drake Interpretating Date/Time 05/02/2018 18:49:22
--- NOTE | 2018-05-02 20:58 | MG ---
cc: Marisabel Murray MD EEG NUMBER: [id number] NURSE PRACTITIONER: AURORA Barney REFERRING: . F61. Awake, drowsy, sleep study. Hyperventilation good effort. Photic stimulation done. CT negative. History of epilepsy, off his Dilantin placed now on Keppra. This is an EEG to determine if he has had any seizures. The patient has a normal background alpha of 10 Hz, 20 microvolts. Lower amplitude but symmetrical. EKG looks sinus. Some mild artifact throughout. Photic stimulation did elicit a normal posterior driving response. Hyperventilation did not change the background. OVERALL IMPRESSION: Normal appearing electroencephalogram without any epileptiform features. Clinical correlation. Marisabel Murray MD DF/rm/do , 07:18 PM , 07:23 PM
== END 2018-05-02 16:13 | disposition home or self-care (01) ==
LOC: NEDA 20:09 → NEPE 20:09 → NEPFCDU 23:43
PROVIDERS: ADMIT Hospitalist; ATTEND Hospitalist